=== PATIENT | female | born 2000 | race Caucasian/White ===

== ENCOUNTER 2024-05-01 22:44 | Emergency (ER) | payer MEDICAID ==
[~2024-05-01] VITALS: Ht 165.1 cm; Wt 69.0 kg
[2024-05-01 22:53] VITALS: BP 118/85; PULSE 82; RESP 18; TEMP 98; O2SAT 100; O2SAT 98
== END 2024-05-02 01:12 | disposition left against medical advice (07) ==
LOC: ER 22:44
DX: M25.512 Pain in left shoulder (principal); R06.02 Shortness of breath; F41.9 Anxiety disorder, unspecified; Z53.21 Procedure and treatment not carried out due to patient leaving prior to being seen by health care provider